=== PATIENT | male | born 1950 | race Caucasian/White ===

== ENCOUNTER → 2017-02-08 | Outpatient (CLI) | payer OTHER ==
[~2017-02-08] VITALS: Ht 180.3 cm; Wt 78.7 kg
[~2017-02-08] MED LIST: ASPIR 8181 M1 PO; ENDOCET 10-3251 EACH PO; LISINOPRIL2.5 M1 PO; MS CONTIN 60 MG60 M1 PO; MS CONTIN30 MG PO; MS CONTIN60 MG PO; NORCO 10-325 T1 EACH PO; NORTRIPTYLINE H25 M3 GT; NORTRIPTYLINE H25 M3 PO; ZOCOR20 MG PO
--- NOTE | ~2017-02-08 | HPC ---
[facility] [place] [address] PAIN MANAGEMENT CONSULTATION Name: ROHINI DUBOSE [facility]: [facility] [id number] Admission: 02/08/17 Attend Phys: Issac Guerrero MD Discharge: Date of : 52 Report #: [id number] THIS REPORT FOR: //name// CC: Issac Williamson MD DATE OF SERVICE: 02/08/2017 Followup visit for cervical radiculopathy and myelopathy. The patient returns to pain clinic today at the request of Dr. Williamson to discuss his medication. I last saw him 14 months ago. At that time, we discussed the use of opioids and the treatment of chronic pain and I think Dr. Williamson had asked us to see him today because of his ongoing use of opioids in today's climate of opioid crisis. The patient has done well over the course of several years with the use of opioids to treat neck pain radiating into his right arm and hand. His x-rays certainly are indicative of significant spinal issue. He has cord indentation and edema of the cord suggestive of myelopathy but has been chronic and his level of function is quite high. He and his and granddaughter lived together. She has spina bifida and lives on a scooter. He provides care to help both of them. He also has a large garden, in fact he has 3 gardens, 1 is 20 x 60, 1 is 20 x 20 and the other 30 x 40 that belongs to his neighbor. He helps care for all of these using a gardens aggressively, so even though he has this cervical issue, he is able to be quite functional. Of concern is his dose of opioid, which is above the CDC guideline of 90 morphine milligram equivalents per day. When I last saw him, he was aware of this number, but we have been prescribing to try and keep our patients at the lowest most effective dose. Even if they are doing well, we have been tapering them gradually towards the #90 with the intent of working with patients to see if we can provide satisfactory relief without the high doses that were common in the 1990s and 1999s. I explained this to the patient. He is also on lisinopril, aspirin and simvastatin. His opioid dose is morphine controlled release 60 mg b.i.d. and hydrocodone 10/325 one tablet 3 times a day. He says he takes all of his medicines and Dr. Williamson provides it for him under terms of an agreement and he also follows for his other conditions as well. Plans to see Dr. Williamson tomorrow in clinic and hopefully, this consultation and dictation we will get to him before. ALLERGIES: None. PHYSICAL EXAMINATION: Blood pressure is 145/94, heart rate 76, respirations 18, [facility] [address] [place] [address] PAIN MANAGEMENT CONSULTATION Name: ROHINI DUBOSE Room #: REG EVETTE Vela#: [id number] Admission: 02/08/17 Attend Phys: Issac Guerrero MD Discharge: Date of : 52 Report #: [id number] BMI is 24.2. Range of cervical spine is good. Flexion, extension, [id number] rotation and tilt did not exacerbate significant pain. Deep tendon reflexes are diminished biceps, triceps, brachioradialis. Reflexes in the lower extremities are 2+. There is no evidence of hyperreflexia to concern for cord compression. Sensation is intact. IMPRESSION: 1. Chronic cervicalgia with cord compression and myelopathy. 2. Management of high risk medications by Dr. Williamson. He is currently at a morphine milligram equivalency or MME dose of 150 mg per day. RECOMMENDATIONS: I have suggested to him that he should make efforts to try and taper his medication we have been doing so in our clinic. He could be tapered by 10% to 30% and goal might be he be on 30 mg of oral morphine twice a day and use the hydrocodone for breakthrough to get him to the 90 MME number. Although this is the random number, it does seem to be a goal that is achievable in many patients and we have a number of patients who feel that they are doing just as well with the lower dose for their pain and in fact, we will see fewer side effects at the lower dose. I do not intend to see him back unless requested but will contact Dr. Williamson about today's visit. By: [id number] Issac Guerrero MD /nt
--- NOTE | ~2017-02-08 | HPC ---
[facility] [address] [place] [address] PAIN MANAGEMENT CONSULTATION Name: ROHINI DUBOSE Room #: REG EVETTE RomeroR.#: [id number] Admission: 02/08/17 Attend Phys: Issac Guerrero MD Discharge: Date of : 52 Report #: [id number] THIS REPORT FOR: //name// CC: Issac Williamson MD DATE OF SERVICE: 02/08/2017 DATE OF REGISTRATION: 02/08/2017 Followup visit for DICTATION ENDS HERE By: [id number] Issac Guerrero MD /nt
[2017-02-08 08:43] VITALS: BP 145/94
== END ==
LOC: PAIN 06:58
DX: M54.12 Radiculopathy, cervical region (principal)

== ENCOUNTER → 2018-02-21 | Outpatient (CLI) | payer OTHER ==
[~2018-02-21] VITALS: Ht 180.3 cm; Wt 79.4 kg
--- NOTE | ~2018-02-21 | P ---
[facility] [place] [address] [place] [address] PROCEDURE REPORT Name: ROHINI DUBOSE JR Room #: REG [facility]#: [id number] Admission: 02/21/18 Attend Phys: Abhi Mukherjee MD Discharge: Date of : 52 Report #: [id number] THIS REPORT FOR: //name// CC: Abhi Williamson BRIEF HISTORY: The patient is a 67-year-old male who was recently found to have an iron deficiency anemia on routine examination. The patient denies any upper GI symptoms. He does take 1 baby aspirin daily, but otherwise denies use of nonsteroidals. PREOPERATIVE DIAGNOSIS: Iron deficiency anemia. POSTOPERATIVE DIAGNOSES: 1. Grade B erosive esophagitis. 2. Diffuse gastritis with questionable blood loss. MEDICATIONS: Deep sedation with propofol per Anesthesia. SPECIMEN: 1. Small bowel biopsies to rule out celiac disease. 2. Biopsies of gastritis. ESTIMATED BLOOD LOSS: 3 mL. PROCEDURE: EGD with biopsy. FINDINGS: Prior to propofol sedation, procedure of upper endoscopy discussed with the patient as well as potential risks and its complications. He indicates he understands and desires to proceed. The patient was placed in left lateral decubitus position. The Olympus video endoscope was inserted in the cervical esophagus under direct vision without difficulty. Examination of this organ through its entire length revealed normal esophageal mucosa down the squamocolumnar junction. The squamocolumnar junction was inspected, and he was noted to have erosive changes consistent with grade B erosive esophagitis. No strictures or masses seen. Talavera esophagus was not seen. A hiatus hernia was not seen. Scope was advanced in the stomach on end view as well as retroflexed views. There was a pattern of gastritis, mostly in the antrum of stomach, there were brownish streaks in the antrum and a few in the body of the stomach, but bright red blood was not seen. This may represent some oozing from gastritis, but significant bleeding was not seen. A definite ulcer was not seen. Upon retroflexion, no mass lesions were seen. The pylorus, duodenal bulb and postbulbar sweep were inspected and noted to be unremarkable. Small bowel biopsies were obtained to evaluate for celiac disease. At that point, the scope was slowly withdrawn and careful circumferential views were obtained. Biopsies obtained of the gastritis as well. [address] [address] PROCEDURE REPORT Name: ROHINI DUBOSE Room #: REG [facility]#: [id number] Admission: 02/21/18 Attend Phys: Abhi Mukherjee MD Discharge: Date of : 52 Report #: [id number] CONDITION OF THE PATIENT UPON DISCHARGE: Following procedure, the patient was drowsy and arousable. He was then prepared for colonoscopy. INSTRUCTIONS TO THE PATIENT AND FAMILY AT THE TIME OF DISCHARGE: He clearly has esophagitis. We will have him start omeprazole 20 mg daily, which he should take daily for about 8 weeks. Thereafter, he may try to reduce to lower dose, possibly every other day or on an as needed basis. We will follow up on biopsies and make further recommendations, proceed with colonoscopy at this time. By: [id number] Abhi Mukherjee MD /nt
--- NOTE | ~2018-02-21 | P ---
[facility] [place] [address] [place] [address] PROCEDURE REPORT Name: ROHINI DUBOSE JR Room #: REG [facility]#: [id number] Admission: 02/21/18 Attend Phys: Abhi Mukherjee MD Discharge: Date of : 52 Report #: [id number] THIS REPORT FOR: //name// CC: Abhi Williamson MD OUTPATIENT COLONOSCOPY REPORT BRIEF HISTORY: The patient is a 67-year-old male with a history of colon adenoma 10 years ago and recent findings of iron-deficiency anemia. PREOPERATIVE DIAGNOSES: History of polyps and iron-deficiency anemia. POSTOPERATIVE DIAGNOSES: 1. Diminutive polyp, cecum. 2. Moderate sigmoid diverticulosis coli. 3. Small internal hemorrhoids. MEDICATIONS: Deep sedation with propofol per anesthesia. SPECIMEN: Cecal polyp. ESTIMATED BLOOD LOSS: 3 mL. PROCEDURE: Colonoscopy to cecum and terminal ileum with biopsy. FINDINGS: Prior to propofol sedation, the procedure of colonoscopy was discussed with the patient as well as potential risks, benefits and complications. He indicates he understands and desires to proceed. DESCRIPTION OF PROCEDURE: With the patient in the left lateral decubitus position, digital examination was completed, which revealed no abnormalities. Subsequently, the Pervasip video colonoscope was introduced in the rectum and advanced under direct vision to the cecum. Done with minimal difficulty. The cecum was identified by the ileocecal valve and the appendiceal orifice. I was able to advance the scope across the ileocecal valve and examine the distal segment of the terminal ileum, which was inspected and noted to be unremarkable. At that point, the scope was slowly withdrawn and careful circumferential views were obtained. Upon slow withdrawal of the scope, the patient was noted to have frothy liquidy material throughout the colon, probably from bile. We had extensively irrigated and lavaged with Mylicon solution and overall obtained a good prep. As we withdrew the scope, the mucosa was within normal limits. Normal vascular pattern. Normal light reflex. No bleeding lesions or potential bleeding lesions were seen. The mucosa was normal throughout. In the sigmoid colon, there was moderate sigmoid diverticular disease, without an endoscopic evidence of diverticulitis. Scope was withdrawn into the rectum and upon [facility] [address] [place] [address] PROCEDURE REPORT Name: ROHINI DUBOSE Room #: REG [facility].#: [id number] Admission: 02/21/18 Attend Phys: Abhi Mukherjee MD Discharge: Date of : 52 Report #: [id number] retroflexion, no abnormalities were seen. However, on retroflexion, small internal hemorrhoids were seen. There was no evidence of bleeding. The scope was withdrawn. The patient tolerated the procedure well. CONDITION OF THE PATIENT UPON DISCHARGE: Following the procedure, the patient drowsy, arousable and conversant and will be discharged to home when fully ambulatory. INSTRUCTIONS TO THE PATIENT AND FAMILY AT THE TIME OF DISCHARGE: I do not see a bleeding lesion. One small polyp was removed. We will follow up on the path and make further recommendations. If this is an adenoma, he should return in 5 years; if not, then 10 years will be indicated. As far as potential blood loss, please see upper endoscopy report for additional details. Last colonoscopy was more than 10 years ago. Withdrawal time from the cecum was 15 minutes and 28 seconds. By: [id number] 1133 Abhi Mukherjee MD /nt
--- NOTE | ~2018-02-21 | PATH ---
[facility] [place] [address] PATHOLOGY RPT PROCEDURE Name: ABDULLAHI BLANK Room #: [facility] [id number] Admission: 02/21/18 Date of : 52 Discharge: Report #: [id number] Path Case #: [id number] [facility] Accession Number: [id number] . 01 Material submitted: . PART A: BIOPSY, SMALL BOWEL PART B: BIOPSY, GASTRITIS PART C: CECAL POLYP . 01 Clinical history: . Pre-OP DX: Anemia, polyps . 02 Diagnosis: A. Small bowel mucosa, rule out celiac, endoscopic biopsy: - No significant diagnostic abnormalities present. - Negative for villous blunting or increase in intraepithelial lymphocytosis. . B. Gastric mucosa, gastritis, endoscopic biopsy: - Moderate reactive gastropathy with focal intestinal metaplasia. - Negative for atrophy or dysplasia. - Negative for Helicobacter pylori (properly controlled immunohistochemical stain performed). . C. Polyp, cecal polyp, endoscopic biopsy: - Tubular adenoma. - Negative for high grade dysplasia. (IUV:db; 02/22/2018) LBQ/02/22/2018 . 02 Electronically signed: . Lakisha Dockery MD, Pathologist NPI- [id number] . 01 Gross description: . A. Received in formalin labeled "Abdullahi Blank Jr, WISAM small bowel, rule out celiac" are 5 segments of cardoza soft tissue measuring 1.5 x 0.8 x 0.3 cm in aggregate dimensions and ranging from 0.2 to 0.5 cm in maximum dimension. The specimen is submitted entirely in cassette A1. . B. Received in formalin labeled "Abdullahi Blank Jr, BX of gastritis," are 4 segments of cardoza soft tissue measuring 1.1 x 0.8 x 0.3 cm in aggregate dimensions and ranging from 0.3 to 0.6 cm in maximum dimension. The specimen is submitted entirely in cassette B1. . C. Received in formalin labeled "Abdullahi Blank Jr, cecal polyp," is a single segment of cardoza soft tissue measuring 0.4 cm in maximum dimension. [address] [address] PATHOLOGY RPT PROCEDURE Name: ABDULLAHI BLANK JR Room #: REG [facility] Vela#: [id number] Admission: 02/21/18 Date of : 52 Discharge: Report #: [id number] Path Case #: [id number] The specimen is entirely submitted in cassette C1. (TSD; 02/21/2018) TOB/TOB . 02 CPT . 120397, 358449, [id number] Performed at: [address], [place] [id number] MD Teodoro Wiggins MD Phone: [phone] Performed at: [address] [id number] MD Lakisha Dockery MD Phone: [phone]
== END | disposition home or self-care (01) ==
LOC: GI 07:22
DX: D12.0 Benign neoplasm of cecum (principal); K57.30 Diverticulosis of large intestine without perforation or abscess without bleeding; K31.9 Disease of stomach and duodenum, unspecified; K64.8 Other hemorrhoids; K20.8 Other esophagitis; E78.5 Hyperlipidemia, unspecified; G89.29 Other chronic pain; Z87.19 Personal history of other diseases of the digestive system; Z86.010 Personal history of colon polyps; Z98.890 Other specified postprocedural states; Z79.82 Long term (current) use of aspirin; Z79.891 Long term (current) use of opiate analgesic; Z79.899 Other long term (current) drug therapy; Z86.73 Personal history of transient ischemic attack (TIA), and cerebral infarction without residual deficits
CPT/HCPCS: 62110; 62900

== ENCOUNTER → 2020-04-20 | Outpatient (CLI) | payer OTHER | LOC: CAT 13:35 | PROVIDERS: ATTEND Internal Medicine | DX: S09.90XA Unspecified injury of head, initial encounter (principal); H53.131 Sudden visual loss, right eye; R51 Headache; G93.89 Other specified disorders of brain; X58.XXXA Exposure to other specified factors, initial encounter; Y93.89 Activity, other specified; Y92.89 Other specified places as the place of occurrence of the external cause; Y99.8 Other external cause status ==

== ENCOUNTER → 2020-04-21 | Outpatient (CLI) | payer OTHER | LOC: SJCVC 09:38 | PROVIDERS: ATTEND Internal Medicine | DX: I10 Essential (primary) hypertension (principal); R00.1 Bradycardia, unspecified; E78.2 Mixed hyperlipidemia; G45.9 Transient cerebral ischemic attack, unspecified; Z79.899 Other long term (current) drug therapy ==

== ENCOUNTER → 2020-09-27 | Outpatient (CLI) | payer OTHER | LOC: MRI 07:54 | DX: I63.89 Other cerebral infarction (principal); G93.89 Other specified disorders of brain; G31.89 Other specified degenerative diseases of nervous system ==

== ENCOUNTER → 2021-02-28 | Outpatient (CLI) | payer OTHER | LOC: SJCVC 14:35 | PROVIDERS: ATTEND Internal Medicine Cardiovascular Disease | DX: R94.31 Abnormal electrocardiogram [ECG] [EKG] (principal); I45.10 Unspecified right bundle-branch block; R55 Syncope and collapse; I11.9 Hypertensive heart disease without heart failure; E78.00 Pure hypercholesterolemia, unspecified; R51.9 Headache, unspecified; G89.29 Other chronic pain; R73.03 Prediabetes; R53.83 Other fatigue; E78.5 Hyperlipidemia, unspecified; F12.90 Cannabis use, unspecified, uncomplicated; Z86.73 Personal history of transient ischemic attack (TIA), and cerebral infarction without residual deficits; Z72.89 Other problems related to lifestyle; Z79.82 Long term (current) use of aspirin; Z79.899 Other long term (current) drug therapy; Z79.84 Long term (current) use of oral hypoglycemic drugs; Z88.1 Allergy status to other antibiotic agents ==

== ENCOUNTER → 2021-02-28 | Outpatient (CLI) | payer OTHER | LOC: CAT 15:24 | PROVIDERS: ATTEND Internal Medicine Cardiovascular Disease | DX: Z13.6 Encounter for screening for cardiovascular disorders (principal); E78.00 Pure hypercholesterolemia, unspecified; I25.10 Atherosclerotic heart disease of native coronary artery without angina pectoris ==

== ENCOUNTER → 2021-03-16 | Outpatient (CLI) | payer OTHER | LOC: SJCVCIMAG 08:14 | PROVIDERS: ATTEND Internal Medicine Cardiovascular Disease | DX: I65.23 Occlusion and stenosis of bilateral carotid arteries (principal); R55 Syncope and collapse; E78.5 Hyperlipidemia, unspecified; I10 Essential (primary) hypertension ==

== ENCOUNTER 2021-10-18 09:16 | Emergency (ER) | payer OTHER ==
[~2021-10-18] VITALS: Ht 180.3 cm; Wt 81.7 kg
[2021-10-18] MEDS ORDERED: INDOMETHACIN 5050 M1 PO (09:31)
[2021-10-18] MEDS ORDERED: NORVASC 2.5 MG2.5 M1 PO (09:31)
[2021-10-18] MEDS ORDERED: ZOLPIDEM TARTRA10 MG PO (09:33)
[2021-10-18] MEDS ORDERED: NAPROSYN500 MG PO (10:06)
[2021-10-18] MEDS ORDERED: IMITREX 25 MG T25 M1 PO (10:06)
[2021-10-18 10:07] VITALS: BP 141/75
== END 2021-10-18 10:07 | disposition home or self-care (01) ==
LOC: ER 09:16
DX: R51.9 Headache, unspecified (principal); E78.5 Hyperlipidemia, unspecified; Z86.73 Personal history of transient ischemic attack (TIA), and cerebral infarction without residual deficits; Z79.82 Long term (current) use of aspirin; Z79.899 Other long term (current) drug therapy